=== PATIENT | female | born 1980 | race American Indian/Alaskan Native ===

== ENCOUNTER 2017-05-27 06:47 | Inpatient (IN) | payer OTHER ==
[2017-05-27 06:55] VITALS: BMI 28.3
[2017-05-27] MEDS ORDERED: cefOXitin IV 2 gm in Dextrose 2 GM/50 ML BAG IVPB ONE ×2 (06:55→07:40)
[2017-05-27] MEDS ORDERED: Sodium Citrate/Citric Acid 15 ml Sol PO ONE (06:55)
[2017-05-27] MEDS: Lactated Ringer's 1,000 ML IV SCH ×2 (07:00→07:45)
--- NOTE | 2017-05-27 07:27 | OBHP ---
Datetime: 05/27/2017 07:05 IP Adm Impression: Term, intrauterine ; No Active Labor; Intact Membranes IP Chief Complaint Other: Placenta praeviia IP Admit Plan: Admit to unit; Initiate Section protocol Admit Comment, IP Provider: Thisis a private patient of Dr. Esa De La Cruz 36 y.o. , LMP unsure, TUNDE 06/14/17, EGA 37w 5d here for primary section due to pl acenta praevia. (+) AFM; denies LOF, VB; (+) occasional, mild contractions. care: recent mi marilee from [facility]; seen by Dr. De La Cruz x 4 visits. Denies anyissues, other than varicose veins P Ob: All girsl, x 2: 05/27/2011 2.67 Kg, [facility]; 02/09/2016, 3.1 Kg, [facility]. 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 Denies h/o STIs or abnormal Pap PMH: denies PSH: denies NKDA Meds: PNV Soc Hx: deneis tobacco, illicit drug or EtOH use. Migrant from [facility] x 2 months. Works in [employer] - currently unemployed. x 8 years Fam Hx: Mother alive 60 y.o. Father alive 67 y.o. both, with DM, HTN. No known fam h/o cancer P.E.: as above. WD in NAD. Awake, alert, oriented to time, person and place. Pleasant and dillon ative Assessment: 36 y.o. P2, 37w 5d placenta praevia for elective primary C/S. Category 1 tracing. Roberta ent last ate 2030 hours, 05/26/17. Clinically stable. Plan: 1) Admit 2) NPO 3) IVFs 4) Admission labs, incl T_C x 2 5) Continuous EFM 6) Salazar 7) Abdominal Prep 8) Mefoxin, economics instructor to O.R. 9) Notify peds 10) Notify anesthesia 11) patient economics instructor to O.R. - Dr. De La Cruz is aware Pelvic Type - PN: Not Done Extremities - PN: Abnormal Abdomen - PN: Normal Back - PN: Normal Breast - PN: Not Done Lungs - PN: Normal Heart - PN: Normal Thyroid - PN: Not Done Neurologic - PN: Normal HEENT - PN: Normal General - PN: Normal FHR - Baseline A Provider: 150 Contraction Comments Provider: occasional Comments, ACOG Physical Exam: Abdomen: Gravid. Soft. Fundal height 38 cm Extremities: (+) varicose vein right popliteal area All other systems reviewed and are negative Gestation - Est Wks by US: 37w 5d IP Hx Assessment: No recorda available Vital Signs Provider: Reviewed; Within Normal Limits IP Indication for Induction: Not Applicable NICHD Variability Prov Fetus A: Moderate 6-25bpm NICHD Accel Fetus A IP Provider: [id number] FHR Category Provider Fetus A: Category I NICHD Decel Fetus A IP Provider: None Dilatation, Provider: deferred Genitourinary Exam: Not Done DTRs - PN: Not Done
[2017-05-27 07:29] LABS: BASO % 0.7 % (0.0-2.0); EOS # 0.1 K/uL (0.0-0.7); HEMATOCRIT 34.2 % (34.0-47.0); LYMPH # 1.7 K/uL (1.0-4.3); LYMPH % 25.4 % (20.0-40.0); MEAN CELL VOLUME 77.6 fL (81.0-99.0); MEAN CORPUSCULAR HEMOGLOBIN 26.6 pg (27.0-31.0); MEAN CORPUSCULAR HGB CONC 34.3 g/dL (33.0-37.0); MEAN PLATELET VOLUME 9.9 fL (7.2-11.7); MONO # 1.1 K/uL (0.0-0.8); MONO % 15.7 % (0.0-10.0); NRBC % 0.2 % (0.0-2.0); RED CELL DISTRIBUTION WIDTH 14.3 % (11.5-14.5); WHITE BLOOD COUNT 6.9 K/uL (4.8-10.8)
[2017-05-27] MEDS ORDERED: Morphine 1 mg/ml preservative-free Inj(Duramorph) ONE (07:37)
[2017-05-27] MEDS ORDERED: Phenylephrine 10 mg/ml Inj ONE (07:37)
[2017-05-27] MEDS ORDERED: Sodium Citrate/Citric Acid 15 ml Sol ONE (07:39)
[2017-05-27 07:49] LABS: INR 0.9
[2017-05-27] MEDS ORDERED: Lactated Ringer's 1,000 ML IV SCH (08:00)
[2017-05-27 08:17] LABS: RBC URINE < 1 /hpf (0-3); URINE BILIRUBIN NEGATIVE (NEGATIVE); URINE BLOOD NEGATIVE (NEGATIVE); URINE COLOR Yellow (YELLOW); URINE GLUCOSE (UA) NORMAL (Normal); URINE KETONE NEGATIVE (NEGATIVE); URINE LEUKOCYTE ESTERASE NEG Leu/uL (Negative); URINE PROTEIN NEGATIVE (NEGATIVE); URINE UROBILINOGEN NORMAL mg/dL (0.2-1.0); WBC URINE < 1 /hpf (0-5)
[2017-05-27 08:18] LABS: CHLORIDE 103 mmol/L (98-107); POTASSIUM 3.9 mmol/L (3.6-5.2); SODIUM 137 mmol/L (132-148)
[2017-05-27 08:20] LABS: BILIRUBIN,TOTAL 0.4 mg/dL (0.2-1.3); GFR AFRICAN-AMERICAN > 60
[2017-05-27 08:21] LABS: ALKALINE PHOSPHATASE 117 U/L (38-126); ALT/SGPT 27 U/L (9-52); AST/SGOT 22 U/L (14-36); BLOOD UREA NITROGEN 5 mg/dL (7-17); CALCIUM 8.9 mg/dl (8.6-10.4); CARBON DIOXIDE 22 mmol/L (22-30); GLUCOSE,RANDOM 82 mg/dL (65-105); TOTAL PROTEIN 6.5 g/dL (6.3-8.3)
[2017-05-27] MEDS ORDERED: Oxytocin 10 Units/ml Inj ONE (08:40)
--- NOTE | 2017-05-27 12:20 | OBDS ---
DELIVERY PERSONNEL Delivery Doctor: Angel De La Cruz MD Scrub Nurse: Francesca Moy Package Line Relief Operator: Annalise Abraham RN Anesthesiologist: dr thompson Resident: nathan MATERNAL INFORMATION Delivery Anesthesia: Spinal Medications in Delivery: 20units pitocin in 1000ml +20units pitocin added to bag Estimated Blood Loss (ml): 650 Placenta Cultured: Yes Maternal Complications: None Other Maternal Complications: none RN Comments: liveborn baby girl via primary c/s, 9/9 Provider Comments: Uncomplicated Primary Section with delivery of a viable female infant , score 9 and 9 and BW of 7Ibs. Complete placenta previa confirmed. LABOR SUMMARY EDC: 06/15/2017 00:00 No. Babies in Womb: 1 Attempted: No Labor Anesthesia: Intrathecal LABOR INFORMATION Reason for Induction: Not Applicable Oxytocin: N/A Group B Beta Strep: Not Done Antibiotics # of Doses: 0 Steroids Given: None Reason Steroids Not Administered: Not Applicable MEMBRANES Membranes Rupture Method: Artificial Rupture of Membranes: 05/27/2017 08:57 Length of Rupture (hrs): 0.02 Amniotic Fluid Color: Clear Amniotic Fluid Amount: Moderate Amniotic Fluid Odor: None STAGES OF LABOR Stage 3 hrs: 0 Stage 3 min: 0 CSECTION DELIVERY Primary Indication: Placenta Previa Secondary Indication: N/A CSection Urgency: Elective CSection Incidence: Primary Labor: No Labor Elective: Elective CSection Incision: Lower Uterine Transverse Uterine Closure: Double-layer closure BABY A INFORMATION Delivery Date/Time: 05/27/2017 08:58 Method of Delivery: Born in Route : No : N/A Forceps: N/A Vacuum Extraction: N/A Shoulder Dystocia : No SHOULDER DYSTOCIA BABY A Infant Delivery Date/Time: 05/27/2017 08:58 PRESENTATION/POSITION BABY A Presentation: Cephalic Cephalic Presentation: Vertex Vertex Position: Right Occipital Anterior Breech Presentation: N/A PLACENTA INFORMATION BABY A Placenta Delivery Time : 05/27/2017 08:58 Placenta Method of Delivery: Manual Removal Placenta Status: Delivered SCORES BABY A Heart Rate 1 min: >100 bpm Resp Effort 1 min: Good Cry Reflex Irritability 1 min: Cough or Sneeze or Pulls Away Muscle Tone 1 min: Active Motion Color 1 min: Body Auberry, Extremities Blue Resuscitation Effort 1 min: N/A SCORE 1 MIN: 9 Heart Rate 5 min: >100 bpm Resp Effort 5 min: Good Cry Reflex Irritability 5 min: Cough or Sneeze or Pulls Away Muscle Tone 5 min: Active Motion Color 5 min: Body Auberry, Extremities Blue Resuscitation Effort 5 min: N/A SCORE 5 MIN: 9 INFANT INFORMATION BABY A Gestational Age at Delivery: 37.2 Gestational Status: Infant Outcome : Liveborn Condition : Stable Infant Sex: Female IDENTIFICATION/MEDS BABY A ID Band Number: [id number] ID Band Location: Left Leg; Left Arm Sensor Applied: Yes Sensor Number: [id number] Sensor Location : Cord Clamp Vitamin K Given : Not Given Erythromycin Given: Not Given WEIGHT/LENGTH BABY A Birthweight (gms): 3165 Infant Weight (lb): 7 Infant Weight (oz): 0 Length Inches: 19.25 Infant Length cms: 48.9 CORD INFORMATION BABY A No. Cord Vessels: 3 Nuchal Cord : N/A Cord Blood Taken: Yes Infant Suction: Mouth; Nose ASSESSMENT BABY A Infant Complications: None Physical Findings at Delivery: Within Normal Limits Infant Respirations: Appears Normal Terminal Operations Supervisor/ALS Called : No Care By: johana Transferred To: Remains with Mother
--- NOTE | 2017-05-27 12:29 | PCM.SURG1 ---
Surgeon's Initial Post Op Note - Surgeon's Notes Surgeon: Dr De La Cruz Rehabilitation Consultant: Tamy Jaquez ( Resident ) Type of Anesthesia: Spinal Anesthesia Administered By: Dr Osuna Pre-Operative Diagnosis: IUP at 37+ weeks with a complete Placenta previa Operative Findings: Live female infant with BW of 3165gms and scores of 9 and 9, complete placenta previa confirmed with dilated veins coursing the lower uterine segment. Baby delivered in cephalic presentation with clear amniotic fluid. Uterus appears normal, both fallopian tubes were present , right ovary was present, left ovary was absent. IV Fluid intake- 1400mls. EBL- 600mls. Urine- 200mls Post-Operative Diagnosis: Same as preop diagnosis Operation Performed: Primary Low Transverse Section Specimen/Specimens Removed: Placenta Estimated Blood Loss: EBL {In ML}: 600 Post-Op Condition: Good Date of Surgery/Procedure: 05/27/17 Time of Surgery/Procedure: 09:30
--- NOTE | 2017-05-27 13:04 | OP ---
PROCEDURE DATE: 05/27/2017 PREOPERATIVE DIAGNOSIS: Intrauterine at 37 weeks with complete placenta previa. POSTOPERATIVE DIAGNOSIS: Intrauterine at 37 weeks with complete placenta previa. PROCEDURE: Primary low transverse section performed on 05/27/2017. SURGEON: Esa De La Cruz MD ASSISTANTS: Demetris Byrd MD and Maria E Miranda (family practice resident). Assistance to this procedure was needed for exposure of tissues and also help in the delivery of the baby. The assistants remained with the surgery throughout its entire length. TYPE OF ANESTHESIA: Spinal. ANESTHESIA ADMINISTERED BY: Dr Enrrique MD FINDINGS: A live female infant with weight of 3165 grams. scores of 9 in the first and fifth minutes respectively. Complete placenta previa was confirmed with dilated veins passing through the lower uterine segment. The baby was delivered in cephalic presentation with clear amniotic fluid. The uterus appeared normal. Both fallopian tubes were present and normal. The right ovary was present, but the left ovary was absent. The tissues around the left adnexa were palpated for the left ovary, but was not found. IV FLUID INTAKE: 1400 mL ESTIMATED BLOOD LOSS: 600 mL URINE OUTPUT: 200 mL COMPLICATIONS: There were no complications. SPECIMEN: Placenta was sent for pathological evaluation. DESCRIPTION OF PROCEDURE: After obtaining informed consent, the patient was sent to the OR with IV running and Salazar catheter in place. The patient was sat on the OR table and after adequate spinal anesthesia was placed in a supine position with a left lateral tilt. The patient was then prepped and draped in the usual sterile fashion. A Pfannenstiel skin incision was made about 2.5 cm from the pubic symphysis using a scalpel. This incision was extended through the subcutaneous tissue, so the rectus fascia was identified. Using a Bovie device, a transverse incision was made in the midportion of the rectus fascia and this was extended to both sides by means of the Scruggs scissors. The rectus fascia was lifted off the underlying rectus muscles both superiorly and inferiorly by means of a blunt dissection and sharp dissection. The rectus muscle was in the midline to expose peritoneum, which was tented between 2 Lisy clamps and sharply entered using Metzenbaum scissors. Once the abdominal cavity was entered, the above findings were noted. The vesicouterine fold of peritoneum was identified, incised in a transverse fashion carefully avoiding the dilated veins. A low transverse incision was made above the area where the dilated veins were located. The incision was sent through the myometrial layers, so the amniotic membranes were identified. The amniotic membranes were ruptured using a pickup forceps and the baby which was located above the placenta in cephalic presentation was delivered. The mouth and nostrils were bulb suctioned and the 3-vessel umbilical cord was clamped and cut and the baby was given to the nurse. The placenta was carefully removed from the lower uterine segment after obtaining the umbilical cord blood for analysis. The uterus was then brought out after removal of the placenta and the bleeding areas were inspected for continous bleeding. Pitocin was increased to 40 units. The uterus contracted well and after adequate uterine contraction and reduction of bleeding in the lower segment, the uterus was cleaned with dry laparotomy pads. The uterine incision was closed in 2 layers using Vicryl #0. The first layer in a running locked fashion and the second layer in a running fashion imbricating the first layer. This was performed until hemostasis was achieved. Irrigation of the pelvis with warmed normal saline was undertaken at this point after which the uterus was returned into the abdominal cavity after removing all laparotomy sponges. Attention was then turned on to anterior abdominal wall, which was closed in layers with 2-0 Vicryl for peritoneum and the rectus muscles. The rectus fascia was re-approximated using Vicryl #0. The subcutaneous tissue was brought together by means of #2-0 plain. The skin was closed in the subcuticular fashion using #4-0 Vicryl. All counts of instruments, laparotomy pads, and needles used were correct x3, and the patient was sent to the recovery room awake and in stable condition. Esa De La Cruz MD DIVYA
[2017-05-27] MEDS: cefOXitin IV 1 gm in Dextrose 1 GM/50 ML BAG IVPB SCH (16:18)
[2017-05-27] MEDS: Oxycodone/Acetaminophen 5/325 mg Tab PO PRN (22:25)
[2017-05-28] MEDS: cefOXitin IV 1 gm in Dextrose 1 GM/50 ML BAG IVPB SCH ×2 (00:19→08:29)
[2017-05-28] MEDS: Oxycodone/Acetaminophen 5/325 mg Tab PO PRN ×4 (02:34→19:12)
[2017-05-28 08:18] LABS: HEMATOCRIT 32.8 % (34.0-47.0); MEAN CELL VOLUME 77.7 fL (81.0-99.0); MEAN CORPUSCULAR HEMOGLOBIN 26.3 pg (27.0-31.0); MEAN CORPUSCULAR HGB CONC 33.9 g/dL (33.0-37.0); MEAN PLATELET VOLUME 9.5 fL (7.2-11.7); RED CELL DISTRIBUTION WIDTH 14.1 % (11.5-14.5)
[2017-05-28 08:32] LABS: CHLORIDE 102 mmol/L (98-107)
[2017-05-28 08:33] LABS: POTASSIUM 4.1 mmol/L (3.6-5.2); SODIUM 137 mmol/L (132-148)
[2017-05-28 08:35] LABS: GFR AFRICAN-AMERICAN > 60
[2017-05-28 08:36] LABS: BLOOD UREA NITROGEN 6 mg/dL (7-17); CALCIUM 8.5 mg/dl (8.6-10.4); CARBON DIOXIDE 26 mmol/L (22-30); GLUCOSE,RANDOM 88 mg/dL (65-105)
[2017-05-29] MEDS: Oxycodone/Acetaminophen 5/325 mg Tab PO PRN ×3 (01:30→14:28)
--- NOTE | 2017-05-29 08:29 | OBPPN ---
Datetime: 05/29/2017 08:28 PP Pain Prov: Within normal limits PP Nausea Prov: Denies PP Flatus Prov: Yes PP Breasts Prov: Normal PP Heart Prov: Normal PP Lungs Prov: Normal PP Abdomen/Uterus Prov: Normal PP Lochia Prov: Normal PP Vulva/Perineum Prov: Normal PP CVA Tenderness Prov: Normal PP Extremities Prov: Normal PP Comments Phys Exam Prov: Abd: Soft, NT, BS- present UT- Firm Incision: Clean and dry. PP Impression Prov: Normal progression PP Plan Prov: Continue present management Vital Signs Provider PP: Reviewed Datetime: 05/28/2017 08:25 PP Impression Other Prov: s/p Delivery PP Progress Note Prov: S/P Delivery, POD #1 CLinically Stable. Plan: COntinue care.
--- NOTE | 2017-05-29 08:32 | OBPPN ---
Datetime: 05/29/2017 08:28 PP Progress Note Prov: S/P Delivery, POD#2 CLinically Stable. Plan: Continue care.
[2017-05-29] MEDS: Simethicone 80 mg Chewtab PO PRN ×3 (10:12→17:59)
[2017-05-30] MEDS: Oxycodone/Acetaminophen 5/325 mg Tab PO PRN ×2 (09:31)
[2017-05-30] MEDS: Simethicone 80 mg Chewtab PO PRN ×2 (09:31→15:30)
[2017-05-30] MEDS ORDERED: Influenza Vaccine 60 mcg/0.5 mL SYR (4YR UP) IM ONE (12:18)
[2017-05-30 21:39] VITALS: BP 108/67; PULSE 88; RESP 18; TEMP 99; O2SAT 100
--- NOTE | 2017-06-02 19:54 | OBDCSUM ---
Datetime: 05/30/2017 07:19 Discharge Diagnosis Prov Other: S/P Section, Clinically Stable
== END 2017-05-30 16:15 | disposition home or self-care (01) | DRG 766 ==
LOC: C.EROB 06:47 → C.4D 06:55 → C.4M 12:15
PROVIDERS: ADMIT Obstetrics & Gynecology; ATTEND Obstetrics & Gynecology
PROC: 10D00Z1 Extraction of Products of Conception, Low, Open Approach (ICD-10-PCS; principal; 2017-05-27)
DX: O44.03 Complete placenta previa NOS or without hemorrhage, third trimester (principal); O87.4 Varicose veins of lower extremity in the puerperium; O34.219 Maternal care for unspecified type scar from previous cesarean delivery; Z3A.37 37 weeks gestation of pregnancy; Z37.0 Single live birth